=== PATIENT | male | born 1965 | race Caucasian/White ===

== ENCOUNTER → 2017-09-23 | Outpatient (CLI) | payer BC ==
[~2017-09-23] VITALS: Ht 180.3 cm; Wt 86.2 kg
[~2017-09-23] MED LIST: LIPITOR10 MG PO; NABUMETONE 500500 M1 PO; SYNTHROID50 MCG PO
--- NOTE | ~2017-09-23 | HPC ---
[facility] [address] [place] [address] PAIN MANAGEMENT CONSULTATION Name: ROZINA HERRON Room #: REG OCHOA Nathan#: [id number] Admission: 09/23/17 Attend Phys: Grey Oneill DO Discharge: Date of : 61 Report #: [id number] THIS REPORT FOR: //name// CC: Saad Oneill The patient is a 52-year-old gentleman, seen in consultation at the request of Dr. Davies for evaluation of pain in low back and left leg. Relatively acute onset about a year ago, has a lot of "popping and clicking" in his low back. Pain seems to be worse at the end of the day. He sought chiropractic manipulation with some efficacy, he has completed a course of physical therapy. He does take nabumetone on a p.r.n. basis. He states he had been jogging up to 2 miles a day 2-3 times a week, but has had to discontinue this recently. He has sharp pain with numbness and tingling in the low back. He rates pain anywhere from a 3-10 on a VAS. He does have some subjective paresthesia in the left leg, which is becoming more episodic. Denies any saddle anesthesia. Denies bowel or bladder continence changes. REVIEW OF SYSTEMS: A complete review of systems was attached to chart and was gone over with the patient. He is , does not smoke or drink alcohol to excess. History of hypothyroidism, for which he takes Synthroid. Dyslipidemia, for which he takes atorvastatin. He had a vasectomy in 1991. 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 Pain impact score is quite low, averaging 18/70. PHYSICAL EXAMINATION: Reveals a 5 feet 11 inches, 190-pound gentleman, BMI is 26.5 kg/m2. Blood pressure 115/75, pulse 65, respirations 16. Cranial nerves 2-12 are grossly intact. Pupils are equal and react to light and accommodation. Extraocular muscles are intact. Alert and oriented to person, place and time, judged to be a reasonable historian. Thyroid is modestly enlarged. Upper extremity strength is preserved. Heart is regular rhythmical without murmur. Lungs are clear to auscultation. Rises from chair using armrest. Gait is tandem. Lumbar flexion is good to 90 degrees. Straight leg raise is equivocal on the left, negative on the right. Lumbar range of motion, rotating and side bending does exacerbate some axial back pain. 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 ASSESSMENT: Symptomatic lumbar radiculopathy by clinical exam and history. RECOMMENDATIONS: Consideration for epidural injection under fluoroscopy, symptoms seem to be improving somewhat presently. We will seek authorization to perform epidural injection under fluoroscopy on Saturday. Given that symptoms are becoming less prominent at this time, we will suggest the patient continue with [address] [address] PAIN MANAGEMENT CONSULTATION Name: ROZINA HERRON Room #: REG OCHOA Nathan#: [id number] Admission: 09/23/17 Attend Phys: Grey Oneill DO Discharge: Date of : 61 Report #: [id number] activity as able. If radicular symptoms are problematic in 1 week, we will move forward with midline epidural injection at L5-S1. Thank you for allowing me to participate in the patient's care. I did suggest that he continue with the nabumetone that Dr. Davies prescribed on a more regular basis. By: [id number] Grey Oneill DO /nt
[2017-09-23 09:31] VITALS: BP 115/75
== END ==
LOC: PAIN 06:31
DX: M54.16 Radiculopathy, lumbar region (principal)

== ENCOUNTER → 2018-02-14 | Outpatient (CLI) | payer BC ==
[~2018-02-14] VITALS: Ht 180.3 cm; Wt 90.4 kg
[2018-02-14 12:42] VITALS: BP 129/87
== END | disposition home or self-care (01) ==
LOC: PAIN 06:59
DX: M54.16 Radiculopathy, lumbar region (principal); Z79.899 Other long term (current) drug therapy

== ENCOUNTER → 2020-10-18 | Outpatient (CLI) | payer OTHER | LOC: CAT 07:54 | PROVIDERS: ATTEND Family Medicine | DX: Z13.6 Encounter for screening for cardiovascular disorders (principal); E78.00 Pure hypercholesterolemia, unspecified; I25.10 Atherosclerotic heart disease of native coronary artery without angina pectoris ==